=== PATIENT | female | born 1945 ===

== ENCOUNTER 2025-02-21 07:00 | Day surgery (SDC) | payer OTHER ==
[2025-02-09 08:38] VITALS: BP 150/90
[2025-02-09 09:12] LABS: BASO % 0.6 % (0.1-1.2); EOS # 0.06 (0.04-0.54); EOS % 1.1 % (0.7-7.0); LYMPH # 1.48 (1.18-3.74); LYMPH % 27.6 % (19.3-53.1); MEAN PLATELET VOLUME 11.60 fl (9.4-12.4); MONO # 0.42 (0.24-0.82); MONO % 7.8 % (4.7-12.5); NEUT # 3.36 (1.56-6.13); NEUT % 62.7 % (34.0-71.1); RED CELL DISTRIBUTION WIDTH 14.0 % (11.6-14.4)
[2025-02-09 09:37] LABS: ALT/SGPT 38.0 U/L (12-78); AST/SGOT 29.0 U/L (15-37); BILIRUBIN TOTAL 1.03 mg/dL (0.3-1.2); BUN CREA RATIO 21.0 (7.0-25.0); CREATININE SERUM 0.7 mg/dL (0.55-1.02); GFR 80.93; GLOBULINA 3.0 G/DL (2.4-3.5); GLUCOSE FASTING 100.0 mg/dL (65-100); OSMOLALITY SERUM 288.0 MOSM/KG (275-295)
[2025-02-09 10:29] LABS: INR 1.03
[~2025-02-21] VITALS: Ht 157.5 cm; Wt 68.0 kg
[~2025-02-21 07:00] MED LIST: LIPITOR20 MG PO; TENORMIN25 MG PO
[2025-02-21] MEDS ORDERED: GLUCAGON 1 MG VIAL IV ONE (10:00)
== END 2025-02-21 10:05 | disposition home or self-care (01) ==
LOC: AMB-ENDOS 07:00 → CIR.AMB 07:45 → AMB-ENDOS 07:45
PROVIDERS: ATTEND Internal Medicine
DX: K31.7 Polyp of stomach and duodenum (principal); K31.89 Other diseases of stomach and duodenum